=== PATIENT | male | born 1980 | race Hispanic/Latino ===

== ENCOUNTER 2016-09-24 15:17 | Emergency (ER) | payer MEDICARE ==
[2016-09-24 15:58] VITALS: BP 122/88
[2016-09-24] MEDS ORDERED: TORADOL IM ONE (16:13)
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
--- NOTE | 2016-09-25 12:21 | XRay Report ---
LEFT KNEE, THREE VIEWS: HISTORY: Fall. FINDINGS: No bony or articular abnormality. No fracture, dislocation or soft tissue calcification. IMPRESSION: Essentially negative left ankle.
--- NOTE | 2016-09-25 12:21 | XRay Report ---
LEFT ANKLE, THREE VIEWS: HISTORY: Fall. FINDINGS: No fracture or dislocation or significant soft tissue swelling. IMPRESSION: Essentially negative left ankle.
--- NOTE | 2016-09-25 12:22 | XRay Report ---
LUMBAR SPINE, THREE VIEWS: HISTORY: Fall. FINDINGS: Normal height of vertebral bodies and intervertebral disc. Normal articular surfaces. No fracture. No soft tissue calcification. IMPRESSION: Essentially negative lumbar spine.
== END 2016-09-24 17:51 | disposition home or self-care (01) ==
LOC: ED 15:17
DX: S83.92XA Sprain of unspecified site of left knee, initial encounter (principal); S93.402A Sprain of unspecified ligament of left ankle, initial encounter; S39.012A Strain of muscle, fascia and tendon of lower back, initial encounter; X58.XXXA Exposure to other specified factors, initial encounter; Y93.9 Activity, unspecified; Y92.9 Unspecified place or not applicable; Y99.9 Unspecified external cause status; F17.200 Nicotine dependence, unspecified, uncomplicated
CPT/HCPCS: 72100; 73562; 73610; 96372; 99283; J1885

== ENCOUNTER 2016-12-19 07:17 | Emergency (ER) | payer MEDICARE ==
[2016-12-19 07:46] VITALS: BP 124/88
[2016-12-19] MEDS ORDERED: CLEOCIN IM ONE (08:57)
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
[2016-12-19] MEDS ORDERED: NORCO 5/325 PO ONE ×2 (08:59→09:00)
== END 2016-12-19 09:49 | disposition home or self-care (01) ==
LOC: ED 07:17
DX: K12.2 Cellulitis and abscess of mouth (principal); K05.10 Chronic gingivitis, plaque induced; K02.9 Dental caries, unspecified; R56.9 Unspecified convulsions
CPT/HCPCS: 96372

== ENCOUNTER 2017-07-09 06:55 | Emergency (ER) | payer MEDICARE ==
[2017-07-09 07:20] VITALS: BP 110/77
--- NOTE | 2017-07-09 07:39 | XRay Report ---
RIGHT WRIST, 4 VIEWS: History: wrist pain, injury. Routine views demonstrate the carpal bones to be well mineralized with well preserved bony mineralization and interosseous joint spaces. The carpal and adjacent articular bones have normal contours. The surrounding soft tissues are unremarkable. IMPRESSION: Unremarkable right wrist.
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
[2017-07-09] MEDS ORDERED: NORCO 5/325 PO ONE (10:55)
== END 2017-07-09 11:28 | disposition home or self-care (01) ==
LOC: ED 06:55
DX: M79.641 Pain in right hand (principal); W22.8XXA Striking against or struck by other objects, initial encounter; Y93.89 Activity, other specified; Y92.89 Other specified places as the place of occurrence of the external cause; Y99.8 Other external cause status
CPT/HCPCS: 99283

== ENCOUNTER 2017-08-27 07:08 | Emergency (ER) | payer MEDICARE ==
[2017-08-27 09:27] VITALS: BP 120/83
[2017-08-27] MEDS ORDERED: MOTRIN ONE (09:33)
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
== END 2017-08-27 12:13 | disposition home or self-care (01) ==
LOC: ED 07:08
DX: K04.7 Periapical abscess without sinus (principal); K02.9 Dental caries, unspecified; K05.10 Chronic gingivitis, plaque induced
CPT/HCPCS: 99282

== ENCOUNTER 2017-09-20 08:55 | Emergency (ER) | payer MEDICARE ==
[2017-09-20 09:25] VITALS: BP 118/87
[2017-09-20] MEDS ORDERED: TORADOL IM ONE (11:18)
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
== END 2017-09-20 11:51 | disposition home or self-care (01) ==
LOC: ED 08:55
DX: G89.29 Other chronic pain (principal); M54.5 Low back pain; Z87.891 Personal history of nicotine dependence; Z88.6 Allergy status to analgesic agent; Z88.8 Allergy status to other drugs, medicaments and biological substances
CPT/HCPCS: 96372; 99282; J1885

== ENCOUNTER 2021-10-10 14:44 | Emergency (ER) | payer MEDICARE, OTHER ==
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
[2021-10-10 20:38] VITALS: BP 110/73
== END 2021-10-10 20:39 | disposition home or self-care (01) ==
LOC: ED 14:44
DX: R51.9 Headache, unspecified (principal); M54.2 Cervicalgia; M54.9 Dorsalgia, unspecified; G40.909 Epilepsy, unspecified, not intractable, without status epilepticus; Z98.890 Other specified postprocedural states; Z88.1 Allergy status to other antibiotic agents; Z91.09 Other allergy status, other than to drugs and biological substances; V89.2XXA Person injured in unspecified motor-vehicle accident, traffic, initial encounter; Y93.89 Activity, other specified; Y92.89 Other specified places as the place of occurrence of the external cause; Y99.8 Other external cause status
CPT/HCPCS: 99282